=== PATIENT | male | born 1990 | race Caucasian/White ===

== ENCOUNTER 2016-10-12 11:15 | Emergency (ER) | payer BC ==
[2016-10-12 12:02] VITALS: BMI 23.5
--- NOTE | 2016-10-12 15:26 | PDOC ---
History of Present Illness - General History Source: Patient Exam Limitations: No Limitations <Jeremy Daniels - Last Filed: 10/12/16 15:41> - History of Present Illness Initial Comments: 10/12/16 15:32 General History Source: Patient Exam Limitations: No Limitations - History of Present Illness Initial Comments: 10/12/16 15:27 The patient is a 25 year old male, with no significant past medical history, who presents to the emergency department with BRBPR when having brown stool, and episodes of vertigo and tinnitus together off and on for the past couple months. He describes his bowel movements as normal and brown bug mixed with some blood and he notices blood when he wipes as well. He notes that he had a similar episode when he was in high school, which was caused by him using a protein supplement to exercise. He stopped the protein supplement and the bloody stools stopped. He states that he recently restarted a the protein supplement, which he notes is organic and thats when the bloody stools started again. He denies using any steroids or hormone inducing supplements. He describes his dizziness as if the room was spinning and he notes that he usually hears a ringing in his ear that precedes the dizziness. It is unrelated to his GI complaints The patient denies chest pain, shortness of breath and headache. Denies fever, chills, nausea, vomit, diarrhea and constipation. Allergies: None Past surgical history: None reported Social history: No alcohol, tobacco or drug use reported <Jeremy Daniels - Last Filed: 10/12/16 15:27> <Gwendolyn Sky - Last Filed: 10/12/16 15:31> <Gwendolyn Sky - Last Filed: 10/13/16 09:22> - General Chief Complaint: Rectal Bleed Stated Complaint: DIZZINESS, ABD PAIN, NAUSEA Time Seen by Provider: 10/12/16 15:12 Past History <Jeremy Daniels - Last Filed: 10/12/16 15:41> - Past Medical History Other medical history: DENIES. - Psycho/Social/Smoking Cessation Hx Suicidal Ideation: No Smoking History: Never smoked <Gwendolyn Sky - Last Filed: 10/13/16 09:22> - Past Medical History Allergies/Adverse Reactions: Allergies Allergy/AdvReac Type Severity Reaction Status Date / Time No Known Allergies Allergy Verified 10/12/16 11:58 Home Medications: Ambulatory Orders Meclizine HCl [Antivert -] 25 mg PO TID PRN #20 tablet 10/12/16 Review of Systems - Review of Systems Able to Perform ROS?: Yes Comments:: 10/12/16 15:27 12 point review of systems is as per history of present illness and otherwise negative ROS All Other Systems: Reviewed and Negative <Jeremy Daniels - Last Filed: 10/12/16 15:41> *Physical Exam - Vital Signs Last Vital Signs Temp Pulse Resp BP Pulse Ox 98.2 F 76 19 131/65 100 10/12/16 11:58 10/12/16 11:58 10/12/16 11:58 10/12/16 11:58 10/12/16 11:58 <Jeremy Daniels - Last Filed: 10/12/16 15:41> - Vital Signs Last Vital Signs Temp Pulse Resp BP Pulse Ox 98.2 F 76 19 131/65 100 10/12/16 11:58 10/12/16 11:58 10/12/16 11:58 10/12/16 11:58 10/12/16 11:58 - Physical Exam Comments: 10/12/16 15:28 Physical exam Last Vital Signs Temp Pulse Resp BP Pulse Ox 98.2 F 76 19 131/65 100 10/12/16 11:58 10/12/16 11:58 10/12/16 11:58 10/12/16 11:58 10/12/16 11:58 GENERAL: The patient is awake, alert, and fully oriented, and in no apparent distress. HEAD: Normal with no signs of trauma. EYES: sclera anicteric, conjunctiva are normal. ENT: Moist mucous membranes. NECK: Normal range of motion, supple LUNGS: Breath sounds equal, clear to auscultation bilaterally. No wheezes, and no crackles. HEART: Regular rate and rhythm, normal S1 and S2 without murmur, rub or gallop. ABDOMEN: Soft, nontender, normoactive bowel sounds. No guarding, no rebound. No masses appreciated. RECTAL: External rectal exam is normal On internal exam, and internal hemorrhoid is palpated which is tender No stool or blood in the vault EXTREMITIES: Normal range of motion, no edema. No clubbing or cyanosis. No cords, erythema, or tenderness. NEUROLOGICAL: Cranial nerves II through XII grossly intact. Normal speech, normal gait. PSYCH: Normal mood, normal affect. SKIN: Warm, Dry, <Gwendolyn Sky - Last Filed: 10/13/16 09:22> Medical Decision Making - Medical Decision Making 10/12/16 15:30 Impression-internal hemorrhoid Will recommend Preparation H as directed, and primary care physician and GI follow-up Patient has also had 4 months of episodes of intermittent tinnitus associated with mild vertigo Will refer to ENT <Gwendolyn Sky - Last Filed: 10/13/16 09:22> *DC/Admit/Observation/Transfer - Attestations Scribe Attestion: 10/12/16 15:27 Documentation prepared by Jeremy Daniels, acting as electromedical equipment technician for Gwendolyn Sky MD <Jeremy Daniels - Last Filed: 10/12/16 15:41> <Gwendolyn Sky - Last Filed: 10/13/16 09:22> Diagnosis at time of Disposition: Internal hemorrhoid, bleeding, History of tinnitus, History of vertigo - Discharge Dispostion Disposition: HOME - Prescriptions Prescriptions: Meclizine HCl [Antivert -] 25 mg PO TID PRN #20 tablet PRN Reason: Vertigo - Patient Instructions Printed Discharge Instructions: DI for Hemorrhoids, DI for Rectal Bleeding, DI for Tinnitus, Vertigo Additional Instructions: Preparation H with applicator-use as directed twice a day, and after bowel movement Please follow-up with GI as we discussed-I am referring you to a GI doctor Please follow-up with ENT for your tinnitus and vertigo-I'm giving you a prescription for Antivert to use if you need Followup with your primary care physician in 24-48 hours Return immediately if you worsen in any way Take your medications as directed Do not use your weight lifting supplement - Post Discharge Activity Work/School Note: Back to Work
--- NOTE | 2016-10-12 15:48 | PDOC ---
*Physical Exam - Vital Signs Last Vital Signs Temp Pulse Resp BP Pulse Ox 98.2 F 76 19 131/65 100 10/12/16 11:58 10/12/16 11:58 10/12/16 11:58 10/12/16 11:58 10/12/16 11:58 Heart Score/ECG Review #1 ECG reviewed & interpreted by me at: 15:44 General ECG Interpretation: Sinus Rhythm, Normal Rate (66), Normal Intervals ( qtc 410), No acute ischemic changes (early repolarization) *DC/Admit/Observation/Transfer Diagnosis at time of Disposition: Internal hemorrhoid, bleeding, History of tinnitus, History of vertigo - Discharge Dispostion Disposition: HOME - Prescriptions Prescriptions: Meclizine HCl [Antivert -] 25 mg PO TID PRN #20 tablet PRN Reason: Vertigo - Referrals - Patient Instructions Printed Discharge Instructions: Vertigo, DI for Hemorrhoids, DI for Rectal Bleeding, DI for Tinnitus Additional Instructions: Preparation H with applicator-use as directed twice a day, and after bowel movement Please follow-up with GI as we discussed-I am referring you to a GI doctor Please follow-up with ENT for your tinnitus and vertigo-I'm giving you a prescription for Antivert to use if you need Followup with your primary care physician in 24-48 hours Return immediately if you worsen in any way Take your medications as directed Do not use your weight lifting supplement - Post Discharge Activity Work/School Note: Back to Work
[2016-10-12 15:51] VITALS: BP 135/77; PULSE 88; TEMP 98.1
--- NOTE | 2016-10-13 13:22 | EKG ---
Test Reason : Blood Pressure : / mmHG Vent. Rate : 069 BPM Atrial Rate : 069 BPM P-R Int : 134 ms QRS Dur : 088 ms QT Int : 392 ms P-R-T Axes : 068 078 044 degrees QTc Int : 420 ms NORMAL SINUS RHYTHM WITH SINUS ARRHYTHMIA SEPTAL INFARCT , AGE UNDETERMINED ABNORMAL ECG NO PREVIOUS ECGS AVAILABLE Confirmed by ARNOLDO DEVINE MD ([id number]) on 10/13/2016 1:21:47 PM Referred By: Confirmed By:ARNOLDO DEVINE MD
== END 2016-10-12 15:51 | disposition home or self-care (01) ==
LOC: JER 11:15
DX: K64.8 Other hemorrhoids (principal)
CPT/HCPCS: 93005; 93010; 99282-25